=== PATIENT | female | born 1965 | race Caucasian/White ===

== ENCOUNTER 2021-02-19 09:15 | Observation (INO) | payer MEDICARE, SELFPAY ==
[2021-02-19 09:21] VITALS: BMI 25.0
[2021-02-19 09:23] VITALS: PULSE 97; RESP 20; TEMP 37.1; O2SAT 97
[2021-02-19 14:00] VITALS: BP 118/79; PULSE 105; RESP 17; TEMP 36.6; O2SAT 94
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
[2021-02-19] MEDS: nicotine 21 mg Patch 1 PATCH TRANSDERMA (17:58)
[2021-02-19 20:17] VITALS: BP 106/67; PULSE 85; RESP 16; TEMP 36.7; O2SAT 97
[2021-02-19] MEDS: gabapentin 300 mg Capsule PO (21:00)
[2021-02-19] MEDS: tizanidine 4 mg Tablet PO (21:01)
[2021-02-19] MEDS: HYDROcodone-acetaminophen 10-325 mg Tablet 1 TAB PO (21:33)
[2021-02-20] MEDS: HYDROcodone-acetaminophen 10-325 mg Tablet 1 TAB PO ×2 (02:49→08:16)
[2021-02-20] MEDS: fixodent 39 gm Tube 1 APPLIC DENTAL (03:03)
[2021-02-20] MEDS: hyDROXYzine 25 mg Capsule 50 MG PO (04:30)
[2021-02-20] MEDS: ondansetron 4 MG Tablet PO (04:30)
[2021-02-20 06:00] VITALS: BP 92/67; PULSE 87; RESP 16; TEMP 37.1; O2SAT 99
[2021-02-20] MEDS: nicotine 21 mg Patch 1 PATCH TRANSDERMA (08:13)
[2021-02-20] MEDS: tizanidine 4 mg Tablet PO (08:14)
[2021-02-20] MEDS: atorvastatin 40 mg Tablet 20 MG PO (08:14)
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
[2021-02-20 12:22] VITALS: BP 92/67; PULSE 87; RESP 16; TEMP 37.1; O2SAT 99
== END 2021-02-20 13:34 | disposition home or self-care (01) ==
PROVIDERS: Admitting Provider Psychiatry & Neurology Psychiatry; Visit Provider Psychiatry & Neurology Psychiatry
DX: S61.511A Laceration without foreign body of right wrist, initial encounter (principal); X78.9XXA Intentional self-harm by unspecified sharp object, initial encounter; F43.25 Adjustment disorder with mixed disturbance of emotions and conduct; Z63.0 Problems in relationship with spouse or partner; F17.210 Nicotine dependence, cigarettes, uncomplicated
CPT/HCPCS: G0378; G0379; Q0162